=== PATIENT | female | born 1950 | race Asian ===

== ENCOUNTER → 2016-12-21 | Outpatient (CLI) | payer OTHER | LOC: WI 10:37 | PROVIDERS: ATTEND Nurse Practitioner | DX: Z12.31 Encounter for screening mammogram for malignant neoplasm of breast (principal) | CPT/HCPCS: 77063; G0202; 77067 ==

== ENCOUNTER → 2018-01-03 | Outpatient (CLI) | payer OTHER ==
--- NOTE | 2018-01-03 11:50 | WOMENS IMAGING REPORT ---
EXAM DESCRIPTION: BILAT SCREENING MAMMO W/CAD COMPLETED DATE/TIME: 01/03/2018 10:55 am REASON FOR STUDY: ROUTINE SCREENING;Z12.31 Z12.31 ENCNTR SCREEN MAMMOGRAM FOR MALIGNANT NEOPLASM OF MIR COMPARISON: [id number] TECHNIQUE: Standard craniocaudal and mediolateral oblique views of each breast recorded using Revolution Prep[employer] l acquisition. LIMITATIONS: None. FINDINGS: No masses, calcifications or architectural distortion. No areas of suspicion. Read with the assistance of CAD. .[facility] - R2 Cenova Version 1.3 .[facility] Imaging - R2 Cenova Version 1.3 .[facility] Imaging - R2 Cenova Version 2.4 .[facility] - R2 Cenova Version 2.4 .[facility] - R2 Firewall Security Engineer Version 9.2 IMPRESSION: NORMAL MAMMOGRAM. BIRADS 1. BREAST DENSITY: b. There are scattered areas of fibroglandular density. BIRAD: 1 NEGATIVE RECOMMENDATION: ROUTINE SCREENING COMMENT: The patient has been notified of the results by letter per SA requirements. Additional no tification policies are in place for contacting patient with suspicious or incomplete findings. Quality ID #[id number]: The [employer] recommends an annual screening mammogram for women aged 40 years or over. This facility utilizes a reminder system to ensure that all patients receive reminder letters, and/or direct phone calls for appointments. This includes reminders for routine scr eening mammograms, diagnostic mammograms, or other Breast Imaging Interventions when appropriate. Th is patient will be placed in the appropriate reminder system. The [employer] (ACR) has developed recommendations for screening MRI of the breast s in certain patient populations, to be used in conjunction with mammography. Breast MRI surveillanc e may be appropriate for women with more than 20% lifetime risk of developing breast cancer as deter mined by genetic testing, significant family history of the disease, or history of mantle radiation f or Hodgkins Disease. ACR Practice Guidelines 2008. TECHNICAL DOCUMENTATION: FINDING NUMBER: (1) ASSESSMENT: (1) JOB ID: [id number] [employer]- All Rights Reserved Reading location - IP/workstation name: [email or web address]
== END ==
LOC: WI 12-13 12:36
PROVIDERS: ATTEND Nurse Practitioner
DX: Z12.31 Encounter for screening mammogram for malignant neoplasm of breast (principal)
CPT/HCPCS: 77067

== ENCOUNTER 2018-03-13 09:57 | Day surgery (SDC) | payer OTHER ==
[~2018-03-13 09:57] MED LIST: CHONDR SU A NA/HYALUR INTRAOC KIT (SURGICARE) ONE; EPINEPHRINE INJ/PF 1 MG/1 ML AMPULE ONE; KETOROLAC TROMETHAMINE 0.45% 4 DROP/0.4 ML DROPERETTE OD PRN; LIDOCAINE 1% INJ-PF (10 MG/ML) 30 ML SDV ONE; MIDAZOLAM 2 MG/2 ML INJ ONE
[2018-03-13] MEDS: TROPICAMIDE 1% OPH SOLN 3 ML OD PRN ×3 (10:53→11:13)
[2018-03-13] MEDS: TETRACAINE HCL 0.5% OPH SOLN 0.6 ML DROPERETTE OD PRN ×3 (10:53→11:19)
[2018-03-13] MEDS: BESIFLOXACIN HCL 0.6% OPH SUSP 5 ML BOTTLE OD PRN ×4 (10:53→11:42)
[2018-03-13] MEDS: CYCLOPENTOLATE 0.2%/PHENYLEPHRINE 1% OPH SOLN 2 ML OD PRN ×3 (10:53→11:13)
[2018-03-13] MEDS: TOBRAMYCIN SULFATE/DEXAMETH OPH OINTMENT 3.5 GM ONE ×2 (11:42)
== END 2018-03-13 12:34 | disposition home or self-care (01) ==
LOC: SC 09:57
PROVIDERS: ATTEND Ophthalmology
DX: H25.11 Age-related nuclear cataract, right eye (principal); H40.1111 Primary open-angle glaucoma, right eye, mild stage; I10 Essential (primary) hypertension; E78.00 Pure hypercholesterolemia, unspecified; E11.9 Type 2 diabetes mellitus without complications; R01.1 Cardiac murmur, unspecified; Z79.82 Long term (current) use of aspirin; Z79.899 Other long term (current) drug therapy; Z79.84 Long term (current) use of oral hypoglycemic drugs
CPT/HCPCS: 0191T; 66984; 142; 82962; C1783; J0171; J2250; J3490; V2630

== ENCOUNTER 2018-03-27 08:41 | Day surgery (SDC) | payer OTHER ==
[~2018-03-27 08:41] MED LIST changes: -KETOROLAC TROMETHAMINE 0.45% 4 DROP/0.4 ML DROPERETTE OD PRN; +KETOROLAC TROMETHAMINE 0.45% 4 DROP/0.4 ML DROPERETTE OS PRN; -MIDAZOLAM 2 MG/2 ML INJ ONE; +TOBRAMYCIN SULFATE/DEXAMETH OPH OINTMENT 3.5 GM ONE
[2018-03-27] MEDS ORDERED: MIDAZOLAM 2 MG/2 ML INJ ONE (08:46)
[2018-03-27] MEDS: CYCLOPENTOLATE 0.2%/PHENYLEPHRINE 1% OPH SOLN 2 ML OS PRN ×3 (09:09→09:35)
[2018-03-27] MEDS: TROPICAMIDE 1% OPH SOLN 3 ML OS PRN ×3 (09:09→09:35)
[2018-03-27] MEDS: BESIFLOXACIN HCL 0.6% OPH SUSP 5 ML BOTTLE OS PRN ×3 (09:10→10:10)
[2018-03-27] MEDS: TETRACAINE HCL 0.5% OPH SOLN 0.6 ML DROPERETTE OS PRN ×3 (09:11→10:02)
== END 2018-03-27 10:52 | disposition home or self-care (01) ==
LOC: SC 08:41
PROVIDERS: ATTEND Ophthalmology
DX: H25.12 Age-related nuclear cataract, left eye (principal); H40.1131 Primary open-angle glaucoma, bilateral, mild stage; Z98.41 Cataract extraction status, right eye; I10 Essential (primary) hypertension; E11.9 Type 2 diabetes mellitus without complications; R01.1 Cardiac murmur, unspecified; E78.00 Pure hypercholesterolemia, unspecified; Z79.82 Long term (current) use of aspirin; Z79.899 Other long term (current) drug therapy; Z79.84 Long term (current) use of oral hypoglycemic drugs
CPT/HCPCS: 0191T; 66984; 142; 82962; C1783; J0171; J2250; J3490; V2630

== ENCOUNTER → 2019-05-22 | Outpatient (CLI) | payer OTHER ==
--- NOTE | 2019-05-22 11:14 | WOMENS IMAGING REPORT ---
EXAM DESCRIPTION: BONE DENSITY HIP/SPINE COMPLETED DATE/TIME: 05/22/2019 10:11 am REASON FOR STUDY: M89.9 DISORDER OF BONE, UNSPECIFIED Z12.31 ENCNTR SCREEN MAMMOGRAM FOR MALIGNANT NEOPLASM OF MIR M89.9 DISORDER OF BONE, UNSPECIFIED COMPARISON: 2010 TECHNIQUE: Dual-Energy X-ray Absorptiometry (DEXA) of the AP Spine and Hip. LIMITATIONS: None. FINDINGS: LUMBAR SPINE: The bone mineral density (BMD) measured from L1-L4 in the AP projection correlates with a T-score of 0.0, which is normal as defined by the World Health Organization. BMD Change vs Baseline: This represents an 8% decrease in bone density compared to 2011 HIP: The bone mineral density (BMD) measured in the left femoral neck at the hip correlates with a T-score of -1.9, which is osteopenic as defined by the World Health Organization. BMD Change vs Baseline: This represents a 15% decrease in bone density compared to 2011 10 year Fracture Risk Assessment: Major Osteoporotic Fracture: 11% Hip Fracture: 1.6% IMPRESSION: 1. LUMBAR SPINE WHO CLASSIFICATION: Normal 2. HIP WHO CLASSIFICATION: Osteopenic OVERALL ASSESSMENT: WHO CLASSIFICATION: Osteopenic COMMENT: The World Health Organization defines low BMD as follows: T-score: Normal: Greater than -1.0 Osteopenia: Between -1.0 and -2.5 Osteoporosis: Less than -2.5 without fractures Established osteoporosis: Less than -2.5 with fractures In general, you may wish to consider: Diagnosis Treatment Follow-up DEXA Normal BMD Prevention 2-3 years Osteopenia Prevention/Therapy 1-2 years Osteoporosis Therapy Yearly TECHNICAL DOCUMENTATION: JOB ID: [id number]- All Rights Reserved Reading location - IP/workstation name: [email or web address]
--- NOTE | 2019-05-23 12:17 | WOMENS IMAGING REPORT ---
EXAM DESCRIPTION: BILAT SCREENING MAMMO W/CAD COMPLETED DATE/TIME: 05/22/2019 10:11 am REASON FOR STUDY: Z12.31 SCREENING MAMMOGRAM Z12.31 ENCNTR SCREEN MAMMOGRAM FOR MALIGNANT NEOPLASM OF MIR M89.9 DISORDER OF BONE, UNSPECIFIED COMPARISON: Multiple since 2008 EXAM PARAMETERS: Standard craniocaudal and mediolateral oblique views of each breast recorded using digital acquisition. Read with the assistance of CAD. .[facility] - [facility] Respiratory Therapist Version 9.2 LIMITATIONS: None. FINDINGS: Findings present which are benign by mammographic criteria. No suspicious masses, calcifi cations or architectural distortion. Pertinent benign findings: Old biopsy clip in the right breast central retroareolar region Benign mammographic findings may include one or more of the following: Smooth masses, popcorn/rim/co arse calcifications, asymmetries, post-procedure changes, and lesions with long-standing stability. IMPRESSION: BENIGN MAMMOGRAPHIC FINDINGS. BIRADS 2 BREAST DENSITY: b. There are scattered areas of fibroglandular density. BIRAD: ASSESSMENT: 2 BENIGN FINDING(S) RECOMMENDATION: ROUTINE SCREENING COMMENT: The patient has been notified of the results by letter per SA requirements. Additional no tification policies are in place for contacting patient with suspicious or incomplete findings. Quality ID #225: The [employer] recommends an annual screening mammogram for women aged 40 years or over. This facility utilizes a reminder system to ensure that all patients receive reminder letters, and/or direct phone calls for appointments. This includes reminders for routine scr eening mammograms, diagnostic mammograms, or other Breast Imaging Interventions when appropriate. Th is patient will be placed in the appropriate reminder system. TECHNICAL DOCUMENTATION: FINDING NUMBER: (1) ASSESSMENT: (1) JOB ID: [id number] [employer]- All Rights Reserved Reading location - IP/workstation name: [email or web address]
== END ==
LOC: WI 09:26
PROVIDERS: ATTEND Nurse Practitioner
DX: Z12.31 Encounter for screening mammogram for malignant neoplasm of breast (principal); M85.88 Other specified disorders of bone density and structure, other site; M89.9 Disorder of bone, unspecified
CPT/HCPCS: 77067; 77080

== ENCOUNTER → 2020-05-24 | Outpatient (CLI) | payer OTHER ==
--- NOTE | 2020-05-24 14:08 | WOMENS IMAGING REPORT ---
EXAM DESCRIPTION: 3D SCREENING MAMMO BILAT IMAGES COMPLETED DATE/TIME: 05/24/2020 1:35 pm REASON FOR STUDY: Z12.31 ENCOUNTER FOR SCREENING MAMMOGRAM FOR MALIGNANT NEOPLASM OF BREAST Z12.31 ENCNTR SCREEN MAMMOGRAM FOR MALIGNANT NEOPLASM OF MIR I82.402 ACUTE EMBOLISM AND THOMBOS UNSP DEEP V EINS OF L LOW COMPARISON: 2015 to 2018 EXAM PARAMETERS: Standard craniocaudal and mediolateral oblique views of each breast recorded using digital acquisition and breast tomosynthesis. Read with the assistance of CAD. .[facility] - [employer] Res[employer] Insurance Inspector Version 9.2 LIMITATIONS: None. FINDINGS: Findings present which are benign by mammographic criteria. No suspicious masses, calcific ations or architectural distortion. Pertinent benign findings: Stable mass in the right breast Benign mammographic findings may include one or more of the following: Smooth masses, popcorn/rim/coa rse calcifications, asymmetries, post-procedure changes, and lesions with long-standing stability. IMPRESSION: BENIGN MAMMOGRAPHIC FINDINGS. BIRADS 2 BREAST DENSITY: b. There are scattered areas of fibroglandular density. BIRAD: ASSESSMENT: 2 BENIGN FINDING(S) RECOMMENDATION: ROUTINE SCREENING COMMENT: The patient has been notified of the results by letter per MQSA requirements. Additional no tification policies are in place for contacting patient with suspicious or incomplete findings. Quality ID #225: [employer] recommends an annual screening mammogram for women aged 40 years or over. This facility utilizes a reminder system to ensure that all patients receive reminder letters, and/or direct phone calls for appointments. This includes reminders for routine scr eening mammograms, diagnostic mammograms, or other Breast Imaging Interventions when appropriate. Th is patient will be placed in the appropriate reminder system. TECHNICAL DOCUMENTATION: FINDING NUMBER: (1) ASSESSMENT: (1) JOB ID: [id number] 2010 [employer]- All Rights Reserved Reading location - IP/workstation name: [email or web address]
--- NOTE | 2020-05-24 16:04 | RADIOLOGY REPORT (SQ) ---
EXAM DESCRIPTION: VENOUS UNILATERAL LOWER IMAGES COMPLETED DATE/TIME: 05/24/2020 2:46 pm REASON FOR STUDY: LT I82.402 Z12.31 ENCNTR SCREEN MAMMOGRAM FOR MALIGNANT NEOPLASM OF MIR I82.402 ACUTE EMBOLISM AND THOMBOS UNSP DEEP VEINS OF L LOW COMPARISON: None. TECHNIQUE: Dynamic and static faulkner scale and color images acquired of the left leg venous system. Se lected spectral images acquired with additional compression and augmentation maneuvers. The contralat eral common femoral vein and saphenofemoral junction were also imaged. Images stored on PACS. LIMITATIONS: None. FINDINGS: COMMON FEMORAL: Normal phasicity, compression and augmentation. No visualized echogenic ma terial on faulkner scale. No defects on color images. FEMORAL: Normal compression and augmentation. No visualized echogenic material on faulkner scale. No defe cts on color images. POPLITEAL: Normal compression, augmentation. No visualized echogenic material on faulkner scale. No defec ts on color images. CALF VESSELS: Normal compression, augmentation. No visualized echogenic material on faulkner scale. No de fects on color images. GSV and SSV: Normal compression, augmentation. No visualized echogenic material on faulkner scale. No def ects on color images. ANY DEEP VENOUS INSUFFICIENCY: Not evaluated. ANY EVIDENCE OF POPLITEAL CYST: No. OTHER: No other significant finding. CONTRALATERAL COMMON FEMORAL VEIN AND SAPHENOFEMORAL JUNCTION: Normal phasicity, compression and augmentation. No visualized echogenic material on faulkner scale. No de fects on color images. IMPRESSION: NO EVIDENCE DVT OR SVT IN THE LEFT LEG. TECHNICAL DOCUMENTATION: JOB ID: [id number] 2010 [employer]- All Rights Reserved Reading location - IP/workstation name: [email or web address]
== END ==
LOC: WI 10:44
PROVIDERS: ATTEND Nurse Practitioner
DX: Z12.31 Encounter for screening mammogram for malignant neoplasm of breast (principal); I82.402 Acute embolism and thrombosis of unspecified deep veins of left lower extremity
CPT/HCPCS: 77063; 77067; 93971

== ENCOUNTER 2020-09-02 15:00 | Inpatient (IN) | payer OTHER ==
[2020-09-02 15:33] LABS: WHITE BLOOD COUNT 9.1 10^3/uL (4.0-10.5)
[2020-09-02 15:40] LABS: HEMATOCRIT 36.4 % (36.0-47.0); HEMOGLOBIN 12.3 g/dL (12.0-15.5); MEAN CORPUSCULAR HGB CONC 33.7 g/dL (32.0-36.0); MEAN CORPUSCULAR VOLUME 86 fl (80-97); PLATELET COUNT 321 10^3/uL (150-450); RED BLOOD COUNT 4.24 10^6/uL (3.72-5.28); RED CELL DISTRIBUTION WIDTH 13.5 % (11.5-14.0)
[2020-09-02 15:51] LABS: ALBUMIN 3.4 g/dL (3.5-5.0); ALKALINE PHOSPHATASE 64 U/L (38-126); ANION GAP 8 (5-19); ASPARTATE AMINO TRANSFERASE 84 U/L (14-36); BILIRUBIN,DIRECT 0.5 mg/dL (0.0-0.4); BILIRUBIN,TOTAL 0.9 mg/dL (0.2-1.3); BLOOD UREA NITROGEN 12 mg/dL (7-20); CALCIUM 8.5 mg/dL (8.4-10.2); CARBON DIOXIDE 28 mmol/L (22-30); CHLORIDE 99 mmol/L (98-107); CREATINE KINASE 29 U/L (30-135); GLUCOSE 161 mg/dL (75-110); TOTAL PROTEIN 7.2 g/dL (6.3-8.2)
--- NOTE | 2020-09-02 15:56 | RADIOLOGY REPORT (SQ) ---
EXAM DESCRIPTION: CHEST SINGLE VIEW IMAGES COMPLETED DATE/TIME: 09/02/2020 2:35 pm REASON FOR STUDY: sob COMPARISON: None. EXAM PARAMETERS: NUMBER OF VIEWS: One view. TECHNIQUE: Single frontal radiographic view of the chest acquired. RADIATION DOSE: NA LIMITATIONS: None. FINDINGS: LUNGS AND PLEURA: There are multifocal peripheral opacities in both lungs. No pleural eff usion or pneumothorax. MEDIASTINUM AND HILAR STRUCTURES: No masses. Contour normal. HEART AND VASCULAR STRUCTURES: Heart normal in size. Normal vasculature. BONES: No acute findings. HARDWARE: None in the chest. OTHER: No other significant finding. IMPRESSION: Multifocal patchy opacities suspicious for multifocal pneumonia. TECHNICAL DOCUMENTATION: JOB ID: [id number] 2010 [employer]- All Rights Reserved Reading location - IP/workstation name: [email or web address]
[2020-09-02 16:03] LABS: ABSOLUTE LYMPHOCYTES# (MANUAL) 0.5 10^3/uL (0.5-4.7); ABSOLUTE MONOCYTES # (MANUAL) 0.4 10^3/uL (0.1-1.4); BAND NEUTROPHILS % (MANUAL) 2 % (3-5); BASOPHILS % (MANUAL) 0 % (0-2); EOSINOPHILS % (MANUAL) 1 % (0-6); LYMPHOCYTES % (MANUAL) 5 % (13-45); MONOCYTES % (MANUAL) 4 % (3-13); SEGMENTED NEUTROPHILS % (MAN) 88 % (42-78); TOTAL CELLS COUNTED 100
[2020-09-02 16:04] LABS: BURR CELLS 1+; OVALOCYTES 1+; PLATELET CLUMPS PRESENT; PLATELET COMMENT ADEQUATE; PLATELET LARGE PRESENT; POIKILOCYTOSIS 1+; POLYCHROMASIA 1+
[2020-09-02 16:05] LABS: CREATINE KINASE MB < 0.22 ng/mL (<4.55); TEAR DROP CELLS 1+; TROPONIN I < 0.012 ng/mL
[2020-09-02] MEDS ORDERED: DEXAMETHASONE SOD PHOSPHATE INJ 4 MG/1 ML VIAL IV ONE (16:26)
[2020-09-02] MEDS ORDERED: IPRATROPIUM/ALBUTEROL 0.5-2.5 MG/3 ML AMPUL NEB ONE (16:26)
[2020-09-02] MEDS ORDERED: POTASSIUM CHLORIDE 10 MEQ TABLET.ER PO ONE (16:27)
--- NOTE | 2020-09-02 16:30 | ER Document Report ---
ED Respiratory Problem - General Chief Complaint: Breathing Difficulty Stated Complaint: SHORTNESS OF BREATH Time Seen by Provider: 09/02/20 16:14 Primary Care Provider: ANNA MARIE HEATH DPM [ACTIVE STAFF] - Follow up as needed Notes: CHIEF COMPLAINT: Shortness of breath HPI: 70-year-old female with history of hypertension, high cholesterol, type 2 diabetes presenting for increasing shortness of breath. Patient states she was diagnosed with Covid August 23. Has had shortness of breath since that timeframe. States that she did go to [facility] 2 days ago still had a positive Covid test but was discharged home without medications. Patient states that she gets very tired at home when she is trying to walk around. Denies chest pain. ROS: See HPI - all other systems were reviewed and are otherwise negative Constitutional: no fever Eyes: no drainage, no blurred vision ENT: no runny nose, no sore throat Cardiovascular: no chest pain Resp: + SOB, + cough GI: no vomiting, no diarrhea, no abdominal pain : no dysuria Integumentary: no rash Allergy: no hives Musculoskeletal: no extremity pain or swelling Neurological: no numbness/tingling, no weakness MEDICATIONS: I agree with the patient medications as charted by the RN. ALLERGIES: I agree with the allergies as charted by the RN. PAST MEDICAL HISTORY/PAST SURGICAL HISTORY: Reviewed and agree as charted by RN. SOCIAL HISTORY: Reviewed and agree as charted by RN. FAMILY HISTORY: No significant familial comorbid conditions directly related to patient complaint EXAM: Reviewed vital signs as charted by RN. CONSTITUTIONAL: Alert and oriented and responds appropriately to questions. Well-appearing; well-nourished HEAD: Normocephalic; atraumatic EYES: PERRL; Conjunctivae clear, sclerae non-icteric ENT: normal nose; no rhinorrhea; moist mucous membranes; pharynx without lesions noted, no uvula edema or deviation, no tonsillar hypertrophy, phonation normal NECK: Supple without meningismus; non-tender; no cervical lymphadenopathy, no masses CARD: Tachycardic; no murmurs, no clicks, no rubs, no gallops; symmetric distal pulses RESP: Normal chest excursion without splinting or tachypnea; breath sounds clear and equal bilaterally; no wheezes, no rhonchi, no rales, pulse oximetry 92% on room air mildly hypoxic. Improved to 96% on 2 L nasal cannula at rest ABD/GI: Normal bowel sounds; non-distended; soft, non-tender, no rebound, no guarding; no palpable organomegaly or masses. BACK: The back appears normal and is non-tender to palpation, there is no CVA tenderness EXT: Normal ROM in all joints; non-tender to palpation; no cyanosis, no effusions, no edema SKIN: Normal color for age and race; warm; dry; good turgor; no acute lesions noted NEURO: Moves all extremities equally; Motor and sensory function intact PSYCH: The patient's mood and manner are appropriate. Grooming and personal hygiene are appropriate. MDM: EKG sinus tachycardia heart rate 103, ID 172, QT 300, QTc 393. Nonspecific T wave flattening anterior lateral leads abnormal EKG. Interpreted by emergency department physicians. 70-year-old female positive Covid test approximately 10 days ago with worsening shortness of breath. Patient noted to have bilateral pneumonia likely Covid related. Will give Decadron, albuterol treatment. Discussed with attending Dr. Durand, will ambulate patient to see if she becomes more hypoxic if so will obtain chest CT to evaluate for PE or worsened multifocal pneumonia that might require admission The patient was evaluated during the global COVID-19 pandemic and that diagnosis was suspected/considered upon their initial presentation. Their evaluation, treatment and testing was consistent with current guidelines for patients who present with complaints or symptoms that may be related to COVID-19 TRAVEL OUTSIDE OF THE [place] IN LAST 30 DAYS: No - Related Data Allergies/Adverse Reactions: No Known Allergies Allergy (Verified 09/02/20 16:44) Past Medical History - Social History Smoking Status: Former Smoker Chew tobacco use (# tins/day): No Frequency of alcohol use: None Drug Abuse: None Family History: Reviewed & Not Pertinent Patient has homicidal ideation: No - Past Medical History Cardiac Medical History: Reports: Hx Hypercholesterolemia, Hx Hypertension - ON MEDS Denies: Hx Heart Attack Pulmonary Medical History: Denies: Hx Asthma Neurological Medical History: Denies: Hx Cerebrovascular Accident, Hx Seizures Endocrine Medical History: Reports: Hx Diabetes Mellitus Type 2 GI Medical History: Denies: Hx Hepatitis, Hx Hiatal Hernia, Hx Ulcer Infectious Medical History: Denies: Hx Hepatitis Past Surgical History: Denies: Hx Hysterectomy, Hx Mastectomy, Hx Open Heart Surgery, Hx Pacemaker Physical Exam - Vital signs Vitals: Temp Resp BP Pulse Ox 98.4 F 23 H 130/67 H 97 09/02/20 15:16 09/02/20 15:16 09/02/20 15:16 09/02/20 15:16 Course - Re-evaluation Re-evalutation: 09/02/20 16:37 I did note that the patient's potassium was 3.0. Discussed with attending, will give potassium replacement 09/02/20 17:18 Patient was sit up at the side of the bed, heart rate went to 125, pulse oximetry went to 85% on room air. Will order CT imaging to evaluate for PE versus pneumonia but patient will likely need admission 09/02/20 18:[address] Bolton, case was discussed, will come see patient for admission, does request that I order rapid Covid, Covid labs, CTA chest - Vital Signs Vital signs: Temp Pulse Resp BP Pulse Ox 98.6 F 29 H 119/66 98 09/02/20 16:31 09/02/20 16:01 09/02/20 16:00 09/02/20 16:01 - Laboratory Results Result Diagrams: 09/02/20 15:15 09/02/20 15:15 Laboratory Results Interpreted: 09/02/20 09/02/20 15:15 15:15 Seg Neuts % (Manual) 88 H Band Neutrophils % 2 L Lymphocytes % (Manual) 5 L Sodium 134.5 L Potassium 3.0 L* Glucose 161 H Direct Bilirubin 0.5 H AST 84 H ALT 58 H Creatine Kinase 29 L Albumin 3.4 L Critical Laboratory Results Reviewed: Yes Attending or Supervising Physician who Reviewed Labs: JOVANI DURAND - hypokalemia addressed - Radiology Results Critical Radiology Results Reviewed: No Critical Results Discharge - Discharge Clinical Impression: Pneumonia due to COVID-19 virus, Hypoxia, Hypokalemia Condition: Fair Disposition: ADMITTED INPATIENT Admitting Provider: Hoang (Hospitalist) Referrals: ANNA MARIE HEATH DPM [ACTIVE STAFF] - Follow up as needed
[2020-09-02] MEDS ORDERED: AZITHROMYCIN INJ 500 MG VIAL IV ONE (17:19)
[2020-09-02] MEDS ORDERED: IPRATROPIUM/ALBUTEROL 0.5-2.5 MG/3 ML AMPUL NEB PRN (18:19)
[2020-09-02] MEDS ORDERED: ACETAMINOPHEN 325 MG TABLET PO PRN (18:19)
[2020-09-02] MEDS ORDERED: ONDANSETRON HCL INJ/PF 4 MG/2 ML SDV IV PRN (18:19)
[2020-09-02 18:24] LABS: FIBRINOGEN 708 mg/dL (209-497); INTERNATIONAL RATION (INR) 1.11; PROTHROMBIN TIME 14.5 SEC (11.4-15.4)
[2020-09-02 18:25] LABS: PARTIAL THROMBOPLASTIN TIME 30.1 SEC (23.5-35.8)
[2020-09-02] MEDS ORDERED: DEXTROSE 40% GEL 15 GM TUBE PO PRN ×2 (18:39)
[2020-09-02] MEDS ORDERED: GLUCAGON,HUMAN RECOMB 1 MG INJ IM PRN (18:39)
[2020-09-02] MEDS ORDERED: DEXTROSE 50%-WATER 25 GM/50 ML DISP.SYRIN IV PRN ×2 (18:39)
[2020-09-02] MEDS ORDERED: ENOXAPARIN SODIUM INJ 40 MG/0.4 ML DISP.SYRIN SUBCUT SCH (19:00)
[2020-09-02] MEDS ORDERED: RINGERS SOLUTION,LACTATED 1,000 ML IV PRN (19:10)
--- NOTE | 2020-09-02 19:11 | PDOC H&P ---
History of Present Illness Admission Date/PCP: ALLIE MARIO NP Patient complains of: generalized weakness History of Present Illness: SUSHIL TIDWELL is a 70 year old female, PMH of HTN, Type 2 DM, who came in the ED today due to SOB and generalized weakness. Patient tested positive for COVID on Aug 24, 2020 at [facility]. Her symptoms started a few days before being tested. She experienced generalized weakness, poor appetite and mild SOB. She denied any fever, cough, diarrhea, loss of sense of taste or smell. Her weakness worsened now with associated SOB and She saw her PCP today who advised her to come to the ED. In the ED, BP 130/67, HR 99, T 99, O2 sat 98% on RA but she desaturates to 85% with ambulation. CBC unremarkable, CMP showed hypokalemia 4.0. CXR showed multifocal patchy opacities suspicious for multifocal pneumonia. Patient was given azithromycin and steroids in the ED and hospitalist service was called for further evaluation and management. Past Medical History Cardiac Medical History: Reports: Hyperlipidema, Hypertension - ON MEDS Denies: Myocardial Infarction Pulmonary Medical History: Denies: Asthma EENT Medical History: Reports: None Neurological Medical History: Denies: Seizures Endocrine Medical History: Reports: Diabetes Mellitus Type 2 Renal/ Medical History: Reports: None Malignancy Medical History: Reports: None GI Medical History: Reports: None Denies: Hepatitis, Hiatal Hernia Hematology: Denies: Anemia, Sickle Cell Disease Past Surgical History Past Surgical History: Denies: Amputation, Hysterectomy, Mastectomy, Pacemaker Social History Information Source: Patient Lives with: Alone Smoking Status: Former Smoker Electronic Cigarette use?: No Frequency of Alcohol Use: None Hx Recreational Drug Use: No Family History Family History: Reviewed & Not Pertinent Parental Family History Reviewed: Yes Children Family History Reviewed: Yes Sibling(s) Family History Reviewed.: Yes Medication/Allergy Home Medications: Amlodipine Besylate/Benazepril [Lotrel 10-20 mg Capsule] 1 cap PO DAILY 03/11/18 Aspirin [Adult Aspirin] 81 mg PO DAILY 03/11/18 Calcium Carbonate/Vitamin D3 [Calcium 500 + Vit D Caplet] 1 each PO DAILY 03/11/18 Metformin HCl 500 mg PO BID 03/11/18 [place]-3 Fatty Acids/Fish Oil [Fish Oil 1,000 Mg Capsule] 1 each PO DAILY 03/11/18 Rosuvastatin Calcium [Crestor 20 mg Tablet] 20 mg PO DAILY 03/11/18 Allergies/Adverse Reactions: No Known Allergies Allergy (Verified 09/02/20 16:44) Review of Systems Constitutional: PRESENT: fatigue, weakness Eyes: ABSENT: visual disturbances Ears: ABSENT: hearing changes Nose, Mouth, and Throat: ABSENT: mouth pain, sore throat Cardiovascular: PRESENT: dyspnea on exertion. ABSENT: chest pain, edema, orthropnea, palpitations Respiratory: PRESENT: dyspnea Genitourinary: ABSENT: dysuria Musculoskeletal: ABSENT: joint swelling Neurological: ABSENT: focal weakness Physical Exam Vital Signs: Temp Pulse Resp BP Pulse Ox 98.6 F 35 H 130/74 H 97 09/02/20 16:31 09/02/20 18:01 09/02/20 18:00 09/02/20 18:01 Intake & Output 09/01/20 09/02/20 09/03/20 06:59 06:59 06:59 Output Total 100 Balance -100 Weight 65.771 kg General appearance: PRESENT: no acute distress, cooperative Head exam: PRESENT: atraumatic, normocephalic Eye exam: PRESENT: EOMI, PERRLA Mouth exam: PRESENT: moist Respiratory exam: PRESENT: crackles, rales, symmetrical, unlabored Cardiovascular exam: PRESENT: RRR, +S1, +S2 Pulses: PRESENT: +2 pedal pulses bilateral GI/Abdominal exam: PRESENT: normal bowel sounds, soft. ABSENT: rebound, tenderness Extremities exam: PRESENT: full ROM Musculoskeletal exam: PRESENT: full ROM Neurological exam: PRESENT: alert, awake, oriented to person, oriented to place, oriented to time, oriented to situation Psychiatric exam: PRESENT: normal mood Skin exam: PRESENT: normal color Results Laboratory Results: 09/02/20 15:15 09/02/20 15:15 09/02/20 09/02/20 15:15 15:15 WBC 9.1 RBC 4.24 Hgb 12.3 Hct 36.4 MCV 86 MCH 29.0 MCHC 33.7 RDW 13.5 Plt Count 321 Seg Neutrophils % Not Reportable Sodium 134.5 L Potassium 3.0 L* Chloride 99 Carbon Dioxide 28 Anion Gap 8 BUN 12 Creatinine 0.52 Est GFR ( Amer) > 60 Glucose 161 H Calcium 8.5 Total Bilirubin 0.9 AST 84 H Alkaline Phosphatase 64 Total Protein 7.2 Albumin 3.4 L 09/02/20 09/02/20 09/02/20 15:15 15:15 15:15 Creatine Kinase 29 L CK-MB (CK-2) < 0.22 Troponin I < 0.012 NT-Pro-B Natriuret Pep 100 Impressions: Chest X-Ray 09/02/20 15:19 IMPRESSION: Multifocal patchy opacities suspicious for multifocal pneumonia. Assessment and Plan - Diagnosis (1) Acute respiratory failure with hypoxia Is this a current diagnosis for this admission?: Yes Plan: -came in due to weakness and SOB, desaturates to 85% on ambulation - improved with NC - +ve COVID in Aug 24, 2020 - CXR showing multifocal pneumonia - continue O2 support - treat COVID with steroids, duonebs (2) Pneumonia due to COVID-19 virus Is this a current diagnosis for this admission?: Yes Plan: - has generalized weakness and SOB with hypoxia - tested COVID +ve [facility] Aug 24, 2020 - CXR Multifocal pneumonia - CTA pending - CRP, Ferritin pending - d dimer pending, on lovenox for DVT proph - started dexa 6 mg IV daily - Ivermectin 12 mg now then after 48 hrs - Vitamin C, D, zinc - continue O2 support (3) HTN (hypertension) Qualifiers: Hypertension type: essential hypertension Qualified Code(s): I10 - Essential (primary) hypertension Is this a current diagnosis for this admission?: Yes Plan: - will resume amlodipine (4) Hypokalemia Is this a current diagnosis for this admission?: Yes Plan: - K 3.0 - replaced orally - will CTM (5) Type 2 diabetes mellitus Qualifiers: Diabetes mellitus retirement insulin use: without retirement use Diabetes mellitus complication status: without complication Qualified Code(s): E11.9 - Type 2 diabetes mellitus without complications Is this a current diagnosis for this admission?: Yes Plan: - 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
[2020-09-02 19:13] LABS: APPEARANCE,URINE CLOUDY; BILIRUBIN,URINE NEGATIVE (NEGATIVE); GLUCOSE, URINE NEGATIVE (NEGATIVE); KETONES,URINE NEGATIVE (NEGATIVE); LEUKOCYTE ESTERASE,URINE SMALL (NEGATIVE); NITRITE,URINE POSITIVE (NEGATIVE); PROTEIN,URINE 100 mg/dL (NEGATIVE); URINE SPECIFIC GRAVITY 1.019
[2020-09-02 19:21] LABS: COLOR,URINE YELLOW
--- NOTE | 2020-09-02 19:26 | RADIOLOGY REPORT (SQ) ---
EXAM DESCRIPTION: CTA CHEST IMAGES COMPLETED DATE/TIME: 09/02/2020 6:48 pm REASON FOR STUDY: covid pneumonia COMPARISON: Chest x-ray 09/02/2020 TECHNIQUE: CT scan of the chest performed using helical scanning technique with dynamic intravenous contrast injection. Images reviewed with lung, soft tissue and bone windows. Reconstructed coronal and sagittal MPR images reviewed. Additional 3 dimensional post-processing performed to develop Maximal Intensity Projection images (MT P). All images stored on PACS. All CT scanners at this facility use dose modulation, iterative reconstruction, and/or weight based d osing when appropriate to reduce radiation dose to as low as reasonably achievable (ALARA). [facility]: Dose Right [facility]: CareDose [facility]: Dose Right [facility]: Teradose 4D [facility]: Appier CONTRAST TYPE AND DOSE: contrast/concentration: Isovue 350.00 mmol/ml; Total Contrast Delivered: 75. 0 ml; Total Saline Delivered: 60.7 ml Contrast bolus adequate for pulmonary arteries and aorta. RENAL FUNCTION: BUN 12 creatinine 0.52 RADIATION DOSE: CT Rad equipment meets quality standard of care and radiation dose reduction techniq ues were employed. CTDIvol: 13.2 - 20.8 mGy. DLP: 727 mGy-cm. . LIMITATIONS: None. FINDINGS: LUNGS AND PLEURA: Extensive ground-glass infiltrates bilaterally. AORTA AND GREAT VESSELS: No aneurysm. No dissection. HEART: No pericardial effusion. No significant coronary artery calcifications. PULMONARY ARTERIES: No emboli visualized in the main pulmonary arteries or the segmental branches. HILAR AND MEDIASTINAL STRUCTURES: No identified masses or abnormal nodes. HARDWARE: None in the chest. UPPER ABDOMEN: No significant findings. Limited exam. THYROID AND OTHER SOFT TISSUES: No masses. No adenopathy. BONES: No acute or significant finding. 3D MIPS: Confirm above findings. OTHER: No other significant finding. IMPRESSION: 1. There is no pulmonary embolus. There is no aortic aneurysm or dissection. 2. Extensive bilateral ground-glass infiltrates consistent with the history of COVID-19 pneumonia. COMMENT: Quality ID # [id number]: Final reports with documentation of one or more dose reduction techniques (e.g., Automated exposure control, adjustment of the mA and/or kV according to patient size, use of iterative reconstruction technique) TECHNICAL DOCUMENTATION: JOB ID: [id number] 2010 [employer]- All Rights Reserved Reading location - IP/workstation name: [email or web address]
[2020-09-02] MEDS ORDERED: IVERMECTIN 3 MG TABLET PO ONE (19:30)
[2020-09-02] MEDS: INSULIN LISPRO 100 UNIT/ML 3 ML VIAL SUBCUT SCH (22:45)
[2020-09-02] MEDS: ATORVASTATIN CALCIUM 40 MG TABLET PO SCH (22:45)
[2020-09-02] MEDS: CEFTRIAXONE 1 GM/D5W RTU 1 GM/50 ML RTUPB IV SCH (22:46)
--- NOTE | 2020-09-02 23:35 | EKG REPORT ---
SEVERITY:- ABNORMAL ECG - SINUS TACHYCARDIA NONSPECIFIC T ABNORMALITIES, ANT-LAT LEADS : Confirmed by: Loren Shepherd 02-Sep-2020 23:34:46
[2020-09-03 05:22] LABS: ABSOLUTE LYMPHOCYTES (AUTO) 0.4 10^3/uL (0.5-4.7); ABSOLUTE MONOCYTES (AUTO) 0.3 10^3/uL (0.1-1.4); ABSOLUTE NEUT (AUTO) 3.8 10^3/uL (1.7-8.2); BASOPHILS % (AUTO) 0.2 % (0-2); HEMATOCRIT 32.6 % (36.0-47.0); HEMOGLOBIN 11.1 g/dL (12.0-15.5); LYMPHOCYTES % (AUTO) 7.9 % (13-45); MEAN CORPUSCULAR HGB CONC 34.1 g/dL (32.0-36.0); MEAN CORPUSCULAR VOLUME 85 fl (80-97); MONOCYTES % (AUTO) 6.3 % (3-13); PLATELET COUNT 281 10^3/uL (150-450); RED BLOOD COUNT 3.83 10^6/uL (3.72-5.28); RED CELL DISTRIBUTION WIDTH 13.4 % (11.5-14.0); SEGMENTED NEUTROPHILS % (AUTO) 85.6 % (42-78); TOTAL CELLS COUNTED % (AUTO) 100 %; WHITE BLOOD COUNT 4.5 10^3/uL (4.0-10.5)
[2020-09-03 05:54] LABS: ALBUMIN 2.7 g/dL (3.5-5.0); ALKALINE PHOSPHATASE 57 U/L (38-126); ANION GAP 6 (5-19); ASPARTATE AMINO TRANSFERASE 54 U/L (14-36); BILIRUBIN,DIRECT 0.3 mg/dL (0.0-0.4); BILIRUBIN,TOTAL 0.5 mg/dL (0.2-1.3); BLOOD UREA NITROGEN 10 mg/dL (7-20); C-REACTIVE PROTEIN 64.7 mg/L (<10.0); CALCIUM 8.7 mg/dL (8.4-10.2); CARBON DIOXIDE 28 mmol/L (22-30); CHLORIDE 104 mmol/L (98-107); GLUCOSE 157 mg/dL (75-110); TOTAL PROTEIN 5.9 g/dL (6.3-8.2)
[2020-09-03 06:21] LABS: POTASSIUM 4.4 mmol/L (3.6-5.0)
[2020-09-03] MEDS ORDERED: (PENDING PHARMACY ID) (Rosuvastatin Calcium [Crestor 20 Mg Tablet] 20 MG Tablet) PO SCH (10:00)
[2020-09-03] MEDS: INSULIN LISPRO 100 UNIT/ML 3 ML VIAL SUBCUT SCH ×4 (10:40→21:26)
[2020-09-03] MEDS: ASCORBIC ACID 500 MG TABLET PO SCH ×2 (10:40→17:27)
[2020-09-03] MEDS: CHOLECALCIFEROL (D3) 1,000 UNIT (25 MCG) TABLET PO SCH (10:40)
[2020-09-03] MEDS: DEXAMETHASONE SOD PHOS INJ 10 MG/1 ML VIAL IV SCH (10:41)
[2020-09-03] MEDS: ZINC SULFATE 220 MG CAPSULE PO SCH (10:41)
[2020-09-03] MEDS: ENOXAPARIN SODIUM INJ 60 MG/0.6 ML DISP.SYRIN SUBCUT SCH ×2 (10:41→21:26)
[2020-09-03 11:57] LABS: APPEARANCE,URINE CLEAR; BILIRUBIN,URINE NEGATIVE (NEGATIVE); COLOR,URINE YELLOW; GLUCOSE, URINE NEGATIVE (NEGATIVE); KETONES,URINE NEGATIVE (NEGATIVE); LEUKOCYTE ESTERASE,URINE NEGATIVE (NEGATIVE); NITRITE,URINE NEGATIVE (NEGATIVE); PROTEIN,URINE 30 mg/dL (NEGATIVE); URINE SPECIFIC GRAVITY 1.016
--- NOTE | 2020-09-03 15:45 | PDOC PROGRESS REPORT ---
Subjective Date:: 09/03/20 Subjective:: SUSHIL TIDWELL is a 70 year old female, PMH of HTN, Type 2 DM, who came in the ED today due to SOB and generalized weakness. Patient tested positive for COVID on Aug 24, 2020 at [facility]. Her symptoms started a few days before being tested. She experienced generalized weakness, poor appetite and mild SOB. She denied any fever, cough, diarrhea, loss of sense of taste or smell. Her weakness worsened now with associated SOB and She saw her PCP today who advised her to come to the ED. In the ED, BP 130/67, HR 99, T 99, O2 sat 98% on RA but she desaturates to 85% with ambulation. CBC unremarkable, CMP showed hypokalemia 4.0. CXR showed multifocal patchy opacities suspicious for multifocal pneumonia. Patient was given azithromycin and steroids in the ED and hospitalist service was called for further evaluation and management. D2 Hospital stay Patient was seen and examined at bedside. Reports she feels overall better, has exertional dyspnea but no SOB at rest. Afebrile, good appetite. Reason For Visit: COVID-19 PNEUMONIA Physical Exam Vital Signs: Temp Pulse Resp BP Pulse Ox 97.4 F 79 16 117/60 91 L 09/03/20 08:56 09/03/20 14:00 09/03/20 11:12 09/03/20 08:49 09/03/20 11:12 Intake & Output 09/02/20 09/03/20 09/04/20 06:59 06:59 06:59 Intake Total 50 527 Output Total 100 Balance -50 527 Weight 61.7 kg General appearance: PRESENT: cooperative, mild distress Head exam: PRESENT: atraumatic, normocephalic Eye exam: PRESENT: EOMI, PERRLA Mouth exam: PRESENT: moist Neck exam: PRESENT: full ROM Respiratory exam: PRESENT: rales, symmetrical Cardiovascular exam: PRESENT: RRR, +S1, +S2 GI/Abdominal exam: PRESENT: normal bowel sounds, soft. ABSENT: rebound, tenderness Extremities exam: PRESENT: full ROM Musculoskeletal exam: PRESENT: full ROM Neurological exam: PRESENT: alert, awake, oriented to person, oriented to place, oriented to time, oriented to situation Psychiatric exam: PRESENT: normal mood Skin exam: PRESENT: normal color Results Laboratory Results: 09/03/20 04:09 09/03/20 04:09 09/02/20 09/02/20 09/02/20 15:15 15:15 18:35 WBC 9.1 RBC 4.24 Hgb 12.3 Hct 36.4 MCV 86 MCH 29.0 MCHC 33.7 RDW 13.5 Plt Count 321 Seg Neutrophils % Not Reportable Sodium 134.5 L Potassium 3.0 L* Chloride 99 Carbon Dioxide 28 Anion Gap 8 BUN 12 Creatinine 0.52 Est GFR ( Amer) > 60 Glucose 161 H Calcium 8.5 Ferritin Total Bilirubin 0.9 AST 84 H Alkaline Phosphatase 64 C-Reactive Protein Total Protein 7.2 Albumin 3.4 L Urine Color YELLOW Urine Appearance CLOUDY Urine pH 6.0 Ur Specific [place] 1.019 Urine Protein 100 H Urine Glucose (UA) NEGATIVE Urine Ketones NEGATIVE Urine Blood MODERATE H Urine Nitrite POSITIVE H Ur Leukocyte Esterase SMALL H Urine WBC (Auto) 8 Urine RBC (Auto) 2 09/02/20 09/03/20 09/03/20 19:08 04:09 04:09 WBC 4.5 RBC 3.83 Hgb 11.1 L Hct 32.6 L MCV 85 MCH 29.0 MCHC 34.1 RDW 13.4 Plt Count 281 Seg Neutrophils % 85.6 H Sodium 137.5 Potassium 4.4 D Chloride 104 Carbon Dioxide 28 Anion Gap 6 BUN 10 Creatinine 0.44 L Est GFR ( Amer) > 60 Glucose 157 H Calcium 8.7 Ferritin 193.00 176.00 Total Bilirubin 0.5 AST 54 H Alkaline Phosphatase 57 C-Reactive Protein 64.7 H Total Protein 5.9 L Albumin 2.7 L Urine Color Urine Appearance Urine pH Ur Specific [place] Urine Protein Urine Glucose (UA) Urine Ketones Urine Blood Urine Nitrite Ur Leukocyte Esterase Urine WBC (Auto) Urine RBC (Auto) 09/03/20 11:00 WBC RBC Hgb Hct MCV MCH MCHC RDW Plt Count Seg Neutrophils % Sodium Potassium Chloride Carbon Dioxide Anion Gap BUN Creatinine Est GFR ( Amer) Glucose Calcium Ferritin Total Bilirubin AST Alkaline Phosphatase C-Reactive Protein Total Protein Albumin Urine Color YELLOW Urine Appearance CLEAR Urine pH 7.0 Ur Specific [place] 1.016 Urine Protein 30 H Urine Glucose (UA) NEGATIVE Urine Ketones NEGATIVE Urine Blood SMALL H Urine Nitrite NEGATIVE Ur Leukocyte Esterase NEGATIVE Urine WBC (Auto) 4 Urine RBC (Auto) 4 09/02/20 09/02/20 09/02/20 15:15 15:15 15:15 Creatine Kinase 29 L CK-MB (CK-2) < 0.22 Troponin I < 0.012 NT-Pro-B Natriuret Pep 100 Impressions: Chest X-Ray 09/02/20 15:19 IMPRESSION: Multifocal patchy opacities suspicious for multifocal pneumonia. Chest/Abdomen CTA 09/02/20 17:18 IMPRESSION: 1. There is no pulmonary embolus. There is no aortic aneurysm or dissection. 2. Extensive bilateral ground-glass infiltrates consistent with the history of COVID-19 pneumonia. Assessment and Plan - Diagnosis (1) Acute respiratory failure with hypoxia Is this a current diagnosis for this admission?: Yes Plan: -came in due to weakness and SOB, desaturates to 85% on ambulation - improved with NC - +ve COVID in Aug 24, 2020 - CXR showing multifocal pneumonia - continue O2 support wean off as tolerated - treat COVID with steroids, duonebs (2) Pneumonia due to COVID-19 virus Is this a current diagnosis for this admission?: Yes Plan: - has generalized weakness and SOB with hypoxia - tested COVID +ve [facility] Aug 24, 2020 - CXR Multifocal pneumonia - CTA no PE. Extensive bilateral ground glass infiltrates consistent with hx of COVID 19 - CRP 64.7, Ferritin normal - d dimer 14.6, on full lovenox for DVT proph - started dexa 6 mg IV daily - Ivermectin 12 mg now then after 48 hrs - Vitamin C, D, zinc - continue O2 support (3) HTN (hypertension) Qualifiers: Hypertension type: essential hypertension Qualified Code(s): I10 - Essential (primary) hypertension Is this a current diagnosis for this admission?: Yes Plan: - will resume amlodipine (4) Hypokalemia Is this a current diagnosis for this admission?: Yes Plan: - K 3.0 - replaced orally - will CTM (5) Type 2 diabetes mellitus Qualifiers: Diabetes mellitus correction insulin use: without petroleum terminal plant operator use Diabetes mellitus complication status: without complication Qualified Code(s): E11.9 - Type 2 diabetes mellitus without complications Is this a current diagnosis for this admission?: Yes Plan: - TUBE WASHER metformin will hold for now - on SSI, Accucheck, hypoglycemia protocol (6) HLD (hyperlipidemia) Qualifiers: Hyperlipidemia type: unspecified Qualified Code(s): E78.5 - Hyperlipidemia, unspecified Is this a current diagnosis for this admission?: Yes Plan: - crestor resumed - Time Time Spent with patient: 25-34 minutes Medications reviewed and adjusted accordingly: Yes Anticipated Discharge Disposition: Home, Self Care Anticipated Discharge Timeframe: tbd
[2020-09-03] MEDS: CEFTRIAXONE 1 GM/D5W RTU 1 GM/50 ML RTUPB IV SCH (17:27)
[2020-09-03] MEDS: ATORVASTATIN CALCIUM 40 MG TABLET PO SCH (21:27)
[2020-09-04 05:04] LABS: ABSOLUTE LYMPHOCYTES (AUTO) 0.9 10^3/uL (0.5-4.7); ABSOLUTE MONOCYTES (AUTO) 0.8 10^3/uL (0.1-1.4); ABSOLUTE NEUT (AUTO) 8.2 10^3/uL (1.7-8.2); BASOPHILS % (AUTO) 0.3 % (0-2); EOSINOPHILS % (AUTO) 0.1 % (0-6); HEMATOCRIT 33.6 % (36.0-47.0); HEMOGLOBIN 11.1 g/dL (12.0-15.5); LYMPHOCYTES % (AUTO) 8.9 % (13-45); MEAN CORPUSCULAR HEMOGLOBIN 28.5 pg (27.0-33.4); MEAN CORPUSCULAR HGB CONC 33.1 g/dL (32.0-36.0); MEAN CORPUSCULAR VOLUME 86 fl (80-97); MONOCYTES % (AUTO) 7.7 % (3-13); PLATELET COUNT 317 10^3/uL (150-450); RED CELL DISTRIBUTION WIDTH 13.3 % (11.5-14.0); TOTAL CELLS COUNTED % (AUTO) 100 %
[2020-09-04 05:21] LABS: ALBUMIN 2.9 g/dL (3.5-5.0); ALKALINE PHOSPHATASE 53 U/L (38-126); ANION GAP 5 (5-19); ASPARTATE AMINO TRANSFERASE 40 U/L (14-36); BILIRUBIN,DIRECT 0.4 mg/dL (0.0-0.4); BILIRUBIN,TOTAL 0.5 mg/dL (0.2-1.3); BLOOD UREA NITROGEN 16 mg/dL (7-20); C-REACTIVE PROTEIN 29.5 mg/L (<10.0); CARBON DIOXIDE 30 mmol/L (22-30); CHLORIDE 104 mmol/L (98-107); GLUCOSE 134 mg/dL (75-110); POTASSIUM 3.8 mmol/L (3.6-5.0); TOTAL PROTEIN 6.1 g/dL (6.3-8.2)
[2020-09-04 05:23] LABS: WHITE BLOOD COUNT 9.9 10^3/uL (4.0-10.5)
[2020-09-04] MEDS: INSULIN LISPRO 100 UNIT/ML 3 ML VIAL SUBCUT SCH ×2 (08:48→12:30)
[2020-09-04] MEDS: ZINC SULFATE 220 MG CAPSULE PO SCH (09:13)
--- NOTE | 2020-09-04 09:59 | PDOC DISCHARGE SUMMARY ---
Impression - Admit/DC Date/PCP Admission Date/Primary Care Provider: 09/02/20 18:48 ALLIE MARIO NP Discharge Date: 09/04/20 - Discharge Diagnosis (1) Acute respiratory failure with hypoxia Is this a current diagnosis for this admission?: Yes (2) Pneumonia due to COVID-19 virus Is this a current diagnosis for this admission?: Yes (3) HTN (hypertension) Is this a current diagnosis for this admission?: Yes (4) Hypokalemia Is this a current diagnosis for this admission?: Yes (5) Type 2 diabetes mellitus Is this a current diagnosis for this admission?: Yes (6) HLD (hyperlipidemia) Is this a current diagnosis for this admission?: Yes - Assessment Summary: (1) Acute respiratory failure with hypoxia Is this a current diagnosis for this admission?: Yes Plan: -came in due to weakness and SOB, desaturates to 85% on ambulation - improved with NC - +ve COVID in Aug 24, 2020 - CXR showing multifocal pneumonia - continue O2 support wean off as tolerated - treat COVID with steroids, duonebs (2) Pneumonia due to COVID-19 virus Is this a current diagnosis for this admission?: Yes Plan: - has generalized weakness and SOB with hypoxia - tested COVID +ve [facility] Aug 24, 2020 - CXR Multifocal pneumonia - CTA no PE. Extensive bilateral ground glass infiltrates consistent with hx of COVID 19 - CRP 64.7, Ferritin normal - d dimer 14.6, on full lovenox for DVT proph - started dexa 6 mg IV daily - Ivermectin 12 mg now then after 48 hrs - Vitamin C, D, zinc - continue O2 support (3) HTN (hypertension) Qualifiers: Hypertension type: essential hypertension Qualified Code(s): I10 - Essential (primary) hypertension Is this a current diagnosis for this admission?: Yes Plan: - will resume amlodipine (4) Hypokalemia Is this a current diagnosis for this admission?: Yes Plan: - K 3.0 - replaced orally - will CTM (5) Type 2 diabetes mellitus Qualifiers: Diabetes mellitus fci insulin use: without fci use Diabetes mellitus complication status: without complication Qualified Code(s): E11.9 - Type 2 diabetes mellitus without complications Is this a current diagnosis for this admission?: Yes Plan: - APPLICATION SUPPORT TECHNICIAN metformin will hold for now - on SSI, Accucheck, hypoglycemia protocol (6) HLD (hyperlipidemia) Qualifiers: Hyperlipidemia type: unspecified Qualified Code(s): E78.5 - Hyperlipidemia, unspecified Is this a current diagnosis for this admission?: Yes Plan: - crestor resumed - Additional Information Discharge Diet: As Tolerated Discharge Activity: Activity As Tolerated Referrals: ANNA MARIE HEATH DPM [ACTIVE STAFF] - Follow up as needed Prescriptions: Prednisone [Deltasone 20 mg Tablet] 40 mg PO DAILY 12 Days #24 tablet Ascorbic Acid [Vitamin C 500 mg Tablet] 500 mg PO BID 30 Days #60 tablet Zinc Sulfate [Zinc-220 Capsule] 220 mg PO DAILY 30 Days #30 capsule Home Medications: Aspirin [Adult Aspirin] 81 mg PO DAILY 03/11/18 Calcium Carbonate/Vitamin D3 [Calcium 500-Vit D3 125 Caplet] 1 each PO DAILY 03/11/18 Metformin HCl 500 mg PO TID 03/11/18 [place]-3 Fatty Acids/Fish Oil [Fish Oil 1,000 mg Capsule] 1 each PO DAILY 03/11/18 Rosuvastatin Calcium [Crestor 20 mg Tablet] 20 mg PO DAILY 03/11/18 Amlodipine Besylate/Benazepril [Amlodipine-Benazepril 5-20 mg] 1 cap PO DAILY Ascorbic Acid [Vitamin C 500 mg Tablet] 500 mg PO BID 30 Days #60 tablet 09/04/20 Prednisone [Deltasone 20 mg Tablet] 40 mg PO DAILY 12 Days #24 tablet 09/04/20 Zinc Sulfate [Zinc-220 Capsule] 220 mg PO DAILY 30 Days #30 capsule 09/04/20 History of Present Illiness History of Present Illness: SUSHIL TIDWELL is a 70 year old female, PMH of HTN, Type 2 DM, who came in the ED today due to SOB and generalized weakness. Patient tested positive for COVID on Aug 24, 2020 at [facility]. Her symptoms started a few days before being tested. She experienced generalized weakness, poor appetite and mild SOB. She denied any fever, cough, diarrhea, loss of sense of taste or smell. Her weakness worsened now with associated SOB and She saw her PCP today who advised her to come to the ED. In the ED, BP 130/67, HR 99, T 99, O2 sat 98% on RA but she desaturates to 85% with ambulation. CBC unremarkable, CMP showed hypokalemia 4.0. CXR showed multifocal patchy opacities suspicious for multifocal pneumonia. Patient was given azithromycin and steroids in the ED and hospitalist service was called for further evaluation and management. Hospital Course Hospital Course: She was admitted in the COVID unit and was started on Dexamethasone and received 2 dose of Ivermectin. On the 2nd day of admission she reports feeling much better, her O2 needs decreased to 1L via NC. By the 3rd day she has been weaned off oxygen support completely and was eating ok with also less fatigue adm body malaise. She was eventually discharged with prescriptions for prednisone and aspirn. Physical Exam Vital Signs: Temp Pulse Resp BP Pulse Ox 97.4 F 61 18 118/72 94 09/04/20 08:30 09/04/20 08:30 09/04/20 08:30 09/04/20 08:30 09/04/20 08:30 Intake & Output 09/03/20 09/04/20 09/05/20 06:59 06:59 06:59 Intake Total 50 1057 Output Total 100 30 Balance -50 1027 Weight 61.7 kg 62.1 kg General appearance: PRESENT: no acute distress, cooperative Head exam: PRESENT: atraumatic, normocephalic Eye exam: PRESENT: EOMI, PERRLA Mouth exam: PRESENT: moist Neck exam: PRESENT: full ROM Respiratory exam: PRESENT: clear to auscultation samanta, symmetrical, unlabored Cardiovascular exam: PRESENT: RRR, +S1, +S2 Pulses: PRESENT: +2 pedal pulses bilateral GI/Abdominal exam: PRESENT: normal bowel sounds, soft. ABSENT: rebound, tenderness Extremities exam: PRESENT: full ROM Musculoskeletal exam: PRESENT: full ROM Neurological exam: PRESENT: alert, awake, oriented to person, oriented to place, oriented to time, oriented to situation Psychiatric exam: PRESENT: normal mood Skin exam: PRESENT: normal color Results Laboratory Results: WBC 9.9 10^3/uL (4.0-10.5) D 09/04/20 04:17 RBC 3.90 10^6/uL (3.72-5.28) 09/04/20 04:17 Hgb 11.1 g/dL (12.0-15.5) L 09/04/20 04:17 Hct 33.6 % (36.0-47.0) L 09/04/20 04:17 MCV 86 fl (80-97) 09/04/20 04:17 MCH 28.5 pg (27.0-33.4) 09/04/20 04:17 MCHC 33.1 g/dL (32.0-36.0) 09/04/20 04:17 RDW 13.3 % (11.5-14.0) 09/04/20 04:17 Plt Count 317 10^3/uL (150-450) 09/04/20 04:17 Lymph % (Auto) 8.9 % (13-45) L 09/04/20 04:17 Caroline % (Auto) 7.7 % (3-13) 09/04/20 04:17 Eos % (Auto) 0.1 % (0-6) 09/04/20 04:17 Baso % (Auto) 0.3 % (0-2) 09/04/20 04:17 Absolute Neuts (auto) 8.2 10^3/uL (1.7-8.2) 09/04/20 04:17 Absolute Lymphs (auto) 0.9 10^3/uL (0.5-4.7) 09/04/20 04:17 Absolute Monos (auto) 0.8 10^3/uL (0.1-1.4) 09/04/20 04:17 Absolute Eos (auto) 0.0 10^3/uL (0.0-0.6) 09/04/20 04:17 Absolute Basos (auto) 0.0 10^3/uL (0.0-0.2) 09/04/20 04:17 Total Counted 100 09/02/20 15:15 Seg Neutrophils % 83.0 % (42-78) H 09/04/20 04:17 Seg Neuts % (Manual) 88 % (42-78) H 09/02/20 15:15 Band Neutrophils % 2 % (3-5) L 09/02/20 15:15 Lymphocytes % (Manual) 5 % (13-45) L 09/02/20 15:15 Monocytes % (Manual) 4 % (3-13) 09/02/20 15:15 Eosinophils % (Manual) 1 % (0-6) 09/02/20 15:15 Basophils % (Manual) 0 % (0-2) 09/02/20 15:15 Abs Neuts (Manual) 8.2 10^3/uL (1.7-8.2) 09/02/20 15:15 Abs Lymphs (Manual) 0.5 10^3/uL (0.5-4.7) 09/02/20 15:15 Abs Monocytes (Manual) 0.4 10^3/uL (0.1-1.4) 09/02/20 15:15 Absolute Eos (Manual) 0.1 10^3/uL (0.0-0.6) 09/02/20 15:15 Abs Basophils (Manual) 0.0 10^3/uL (0.0-0.2) 09/02/20 15:15 Clumped Platelets PRESENT 09/02/20 15:15 Large Platelets PRESENT 09/02/20 15:15 Platelet Comment ADEQUATE 09/02/20 15:15 Polychromasia 1+ 09/02/20 15:15 Poikilocytosis 1+ 09/02/20 15:15 Tear Drop Cells 1+ 09/02/20 15:15 Ovalocytes 1+ 09/02/20 15:15 Asm Cells 1+ 09/02/20 15:15 PT 14.5 SEC (11.4-15.4) 09/02/20 15:15 INR 1.11 09/02/20 15:15 APTT 30.1 SEC (23.5-35.8) 09/02/20 15:15 Fibrinogen 708 mg/dL (209-497) H 09/02/20 15:15 D-Dimer 14.63 ug/mL (0.00-0.50) H 09/02/20 15:15 Sodium 138.9 mmol/L (137-145) 09/04/20 04:17 Potassium 3.8 mmol/L (3.6-5.0) 09/04/20 04:17 Chloride 104 mmol/L (98-107) 09/04/20 04:17 Carbon Dioxide 30 mmol/L (22-30) 09/04/20 04:17 Anion Gap 5 (5-19) 09/04/20 04:17 BUN 16 mg/dL (7-20) 09/04/20 04:17 Creatinine 0.50 mg/dL (0.52-1.25) L 09/04/20 04:17 Est GFR ( Amer) > 60 (>60) 09/04/20 04:17 Est GFR (MDRD) Non-Af > 60 (>60) 09/04/20 04:17 Glucose 134 mg/dL (75-110) H 09/04/20 04:17 POC Glucose 98 mg/dL (70-110) 09/04/20 08:31 Calcium 9.0 mg/dL (8.4-10.2) 09/04/20 04:17 Ferritin 169.00 ng/mL (11.1-264.0) 09/04/20 04:17 Total Bilirubin 0.5 mg/dL (0.2-1.3) 09/04/20 04:17 Direct Bilirubin 0.4 mg/dL (0.0-0.4) 09/04/20 04:17 Neonat Total Bilirubin Not Reportable 09/04/20 04:17 Neonat Direct Bilirubin Not Reportable 09/04/20 04:17 Neonat Indirect Bili Not Reportable 09/04/20 04:17 AST 40 U/L (14-36) H 09/04/20 04:17 ALT 53 U/L (<35) H 09/04/20 04:17 Alkaline Phosphatase 53 U/L (38-126) 09/04/20 04:17 Lactate Dehydrogenase 427 U/L (120-246) H 09/02/20 19:08 Creatine Kinase 29 U/L (30-135) L 09/02/20 15:15 CK-MB (CK-2) < 0.22 ng/mL (<4.55) 09/02/20 15:15 Troponin I < 0.012 ng/mL 09/02/20 15:15 C-Reactive Protein 29.5 mg/L (<10.0) H 09/04/20 04:17 NT-Pro-B Natriuret Pep 100 pg/mL (<125) 09/02/20 15:15 Total Protein 6.1 g/dL (6.3-8.2) L 09/04/20 04:17 Albumin 2.9 g/dL (3.5-5.0) L 09/04/20 04:17 Urine Color YELLOW 09/03/20 11:00 Urine Appearance CLEAR 09/03/20 11:00 Urine pH 7.0 (5.0-9.0) 09/03/20 11:00 Ur Specific [place] 1.016 09/03/20 11:00 Urine Protein 30 mg/dL (NEGATIVE) H 09/03/20 11:00 Urine Glucose (UA) NEGATIVE mg/dL (NEGATIVE) 09/03/20 11:00 Urine Ketones NEGATIVE mg/dL (NEGATIVE) 09/03/20 11:00 Urine Blood SMALL (NEGATIVE) H 09/03/20 11:00 Urine Nitrite NEGATIVE (NEGATIVE) 09/03/20 11:00 Urine Bilirubin NEGATIVE (NEGATIVE) 09/03/20 11:00 Urine Urobilinogen 4.0 mg/dL (<2.0) H 09/03/20 11:00 Ur Leukocyte Esterase NEGATIVE (NEGATIVE) 09/03/20 11:00 Urine WBC (Auto) 4 /HPF 09/03/20 11:00 Urine RBC (Auto) 4 /HPF 09/03/20 11:00 Urine Bacteria (Auto) TRACE /HPF 09/03/20 11:00 Squamous Epi Cells Auto 3 /HPF 09/03/20 11:00 Urine Mucus (Auto) FEW /LPF 09/03/20 11:00 Urine Ascorbic Acid NEGATIVE (NEGATIVE) 09/03/20 11:00 Garo Human Metapneumo PCR NOT DETECTED (NOT DETECT) 09/02/20 18:52 Adenovirus (PCR) NOT DETECTED (NOT DETECT) 09/02/20 18:52 B. pertussis DNA (PCR) NOT DETECTED (NOT DETECT) 09/02/20 18:52 B.parapertussis DNA PCR NOT DETECTED (NOT DETECT) 09/02/20 18:52 C. pneumoniae DNA (PCR) NOT DETECTED (NOT DETECT) 09/02/20 18:52 Coronavirus OC43 (PCR) NOT DETECTED (NOT DETECT) 09/02/20 18:52 Coronavirus HKU1 (PCR) NOT DETECTED (NOT DETECT) 09/02/20 18:52 Coronavirus 229E (PCR) NOT DETECTED (NOT DETECT) 09/02/20 18:52 Coronavirus NL63 (PCR) NOT DETECTED (NOT DETECT) 09/02/20 18:52 Influenza A (H1) PCR NOT DETECTED (NOT DETECT) 09/02/20 18:52 Influ A (H1N1/09) PCR NOT DETECTED (NOT DETECT) 09/02/20 18:52 Influenza A (H3) PCR NOT DETECTED (NOT DETECT) 09/02/20 18:52 Influenza Type A (PCR) NOT DETECTED (NOT DETECT) 09/02/20 18:52 Influenza Type B (PCR) NOT DETECTED (NOT DETECT) 09/02/20 18:52 M. pneumoniae (PCR) NOT DETECTED (NOT DETECT) 09/02/20 18:52 Parainfluenza 1 (PCR) NOT DETECTED (NOT DETECT) 09/02/20 18:52 Parainfluenza 2 (PCR) NOT DETECTED (NOT DETECT) 09/02/20 18:52 Parainfluenza 3 (PCR) NOT DETECTED (NOT DETECT) 09/02/20 18:52 Parainfluenza 4 (PCR) NOT DETECTED (NOT DETECT) 09/02/20 18:52 RSV (PCR) NOT DETECTED (NOT DETECT) 09/02/20 18:52 Entero/Rhino (PCR) NOT DETECTED (NOT DETECT) 09/02/20 18:52 SARS-CoV-2 (PCR) DETECTED (NOT DETECT) H 09/02/20 18:52 09/02/20 09/02/20 15:15 15:15 CK-MB (CK-2) < 0.22 Troponin I < 0.012 NT-Pro-B Natriuret Pep 100 Impressions: Chest X-Ray 09/02/20 15:19 IMPRESSION: Multifocal patchy opacities suspicious for multifocal pneumonia. Chest/Abdomen CTA 09/02/20 17:18 IMPRESSION: 1. There is no pulmonary embolus. There is no aortic aneurysm or dissection. 2. Extensive bilateral ground-glass infiltrates consistent with the history of COVID-19 pneumonia. Plan Plan of Treatment: - ff.up with PCP - take medications as prescribed Time Spent: Less than 30 Minutes Stroke Is this a Stroke Patient?: No Acute Heart Failure Is this a Heart Failure Patient?: No
[2020-09-04] MEDS ORDERED: [UNRECOGNIZED DRUG - OTHER] PO SCH (10:00)
[2020-09-04] MEDS ORDERED: BENAZEPRIL PO SCH (10:00)
[2020-09-04] MEDS ORDERED: AMLODIPINE BESYLATE PO SCH (10:00)
[2020-09-04] MEDS ORDERED: ASPIRIN 81 MG TABLET, ENT COATED PO SCH (10:00)
[2020-09-04] MEDS: CHOLECALCIFEROL (D3) 1,000 UNIT (25 MCG) TABLET PO SCH (10:27)
[2020-09-04] MEDS: ASCORBIC ACID 500 MG TABLET PO SCH (10:27)
[2020-09-04] MEDS: DEXAMETHASONE SOD PHOS INJ 10 MG/1 ML VIAL IV SCH (10:27)
[2020-09-04] MEDS: ENOXAPARIN SODIUM INJ 60 MG/0.6 ML DISP.SYRIN SUBCUT SCH (10:28)
[2020-09-04] MEDS ORDERED: IVERMECTIN 3 MG TABLET PO ONE ×3 (12:00→18:00)
[2020-09-04 12:41] VITALS: BP 117/67
[2020-09-05] MEDS ORDERED: BENAZEPRIL HCL 20 MG TABLET PO SCH (10:00)
[2020-09-05] MEDS ORDERED: AMLODIPINE BESYLATE 5 MG TABLET PO SCH (10:00)
== END 2020-09-04 13:10 | disposition home or self-care (01) | DRG 177 ==
LOC: ER 15:00 → EH 18:48 → 3N 22:15
PROVIDERS: ADMIT Internal Medicine; ATTEND Internal Medicine
DX: U07.1 COVID-19 (principal); J12.82 Pneumonia due to coronavirus disease 2019; J96.01 Acute respiratory failure with hypoxia; E11.9 Type 2 diabetes mellitus without complications; I10 Essential (primary) hypertension; E87.6 Hypokalemia; E78.5 Hyperlipidemia, unspecified; Z87.891 Personal history of nicotine dependence; Z79.82 Long term (current) use of aspirin; Z79.84 Long term (current) use of oral hypoglycemic drugs
CPT/HCPCS: 0202U; 36415; 71045; 71275; 80053; 81001; 82550; 82553; 82728; 82962; 83615; 83880; 84484; 85025; 85379; 85384; 85610; 85730; 86140; 87040; 87077; 87150; 87186; 93005; 93010; 94640; 96374; 99285; J0456; J0696; J1100; J1650; J1815; J3490; J7120